=== PATIENT | male | born 1990 | race Caucasian/White ===

== ENCOUNTER 2016-12-06 07:47 | Emergency (ER) | payer SELFPAY ==
[~2016-12-06] VITALS: Ht 167.6 cm; Wt 72.6 kg
[2016-12-06 07:55] VITALS: BP 160/80
--- NOTE | 2016-12-06 08:35 | PHYS DOC ---
Past Medical History Past Medical History: No Pertinent History Past Surgical History: No Surgical History Alcohol Use: Occasionally Drug Use: Marijuana Adult General Chief Complaint Chief Complaint: FOREIGNBODY EAR HPI HPI Patient is a 26 year old male who presents with pressure to the left ear that began last night. Patient states he put peroxide in the left ear canal in assumption it could be ear wax. Patient denies any fever. Denies any coughing or congestion. Review of Systems Review of Systems Constitutional: Denies fever or chills [] Eyes: Denies change in visual acuity, redness, or eye pain [] HENT: Pressure to the left ear Respiratory: Denies cough or shortness of breath [] Cardiovascular: No additional information not addressed in HPI [] GI: Denies abdominal pain, nausea, vomiting, bloody stools or diarrhea [] : Denies dysuria or hematuria [] Musculoskeletal: Denies back pain or joint pain [] Integument: Denies rash or skin lesions [] Neurologic: Denies headache, focal weakness or sensory changes [] Endocrine: Denies polyuria or polydipsia [] Allergies Allergies Allergies Coded Allergies Type Severity Reaction Last Updated Verified No Known Drug Allergies 12/06/16 No Physical Exam Physical Exam Constitutional: Well developed, well nourished, no acute distress, non-toxic appearance. [] HENT: Normocephalic, atraumatic, bilateral external ears normal, oropharynx moist, no oral exudates, nose normal. [] Left ear canal is impacted with cerumen. The TM can be partially visualized but appears normal. Right TM appears normal Eyes: PERRLA, EOMI, conjunctiva normal, no discharge. [] Neck: Normal range of motion, no tenderness, supple, no stridor. [] Cardiovascular:Heart rate regular rhythm, no murmur [] Lungs & Thorax: Bilateral breath sounds clear to auscultation [] Abdomen: Bowel sounds normal, soft, no tenderness, no masses, no pulsatile masses. [] Skin: Warm, dry, no erythema, no rash. [] Back: No tenderness, no CVA tenderness. [] Extremities: No tenderness, no cyanosis, no clubbing, ROM intact, no edema. [] Neurologic: Alert and oriented X 3, normal motor function, normal sensory function, no focal deficits noted. [] Psychologic: Affect normal, judgement normal, mood normal. [] Current Patient Data Vital Signs Vital Signs Date Time Temp Pulse Resp B/P (MAP) Pulse Ox O2 Delivery O2 Flow Rate FiO2 12/06/16 07:55 97.8 78 16 98 Room Air 97.8 EKG EKG [] Radiology/Procedures Radiology/Procedures [] Course & Med Decision Making Course & Med Decision Making Pertinent Labs and Imaging studies reviewed. (See chart for details) Patient is in the ED with cerumen impaction to the left ear. His left ear was flushed in the ED with a very small success. He was advised to use over-the- counter Debrox or liquid Colace for a few days and then flush the ears. Dragon Disclaimer Dragon Disclaimer This electronic medical record was generated, in whole or in part, using a voice recognition dictation system. Departure Departure Impression: Primary Impression: Impacted cerumen of left ear Disposition: 01 HOME, SELF-CARE Condition: STABLE Referrals: NO PCP (PCP) Follow-up with your own doctor in 1-2 weeks as needed Patient Instructions: Cerumen Impaction-SportsMed Additional Instructions: You were seen for ear wax in the left ear canal. You can use [id number] Debrox or liquid Colace to the left ear for a couple days then rinse out the left ear. Follow-up with your own doctor in 1-2 weeks as needed. Come back to the ED if symptoms worsen. ELICIA COATES APRN December 06, 2016 08:35
== END 2016-12-06 08:35 | disposition home or self-care (01) ==
LOC: ER 07:47
DX: H61.22 Impacted cerumen, left ear (principal); F12.10 Cannabis abuse, uncomplicated
CPT/HCPCS: 69209; 99282